=== PATIENT | male | born 1985 | race Caucasian/White ===

== ENCOUNTER 2017-07-23 06:12 | Emergency (ER) | payer SELFPAY ==
[~2017-07-23] VITALS: Ht 180.3 cm; Wt 105.0 kg
[2017-07-23 06:14] VITALS: BP 139/85; PULSE 79; RESP 18; TEMP 97.8; O2SAT 99
[2017-07-23] MEDS ORDERED: PENI500T PO (06:38)
[2017-07-23] MEDS ORDERED: MAGICPED SWISH-SWAL (06:38)
[2017-07-23] MEDS ORDERED: IBUP1TAB7 PO (06:38)
--- NOTE | 2017-07-23 06:39 | PD ---
HPI Chief Complaint: Oral / Dental Pain or Problem Time Seen by Provider: 06:31 Travel History International Travel<30 days: No Contact w/Intl Traveler<30days: No Traveled to known affect area: No History of Present Illness HPI 32-year-old male presents emergency department for evaluation of L upper tooth pain and swelling that has been worsening over the last week. Says that he has been able to follow-up with a dentist because of insurance and funding issues. Says his pain is located in the left upper premolar region and radiates just surrounding the area. His pain is mild to moderate in severity. Denies fevers or chills. Denies stiff neck, drooling, or trouble swallowing. Denies previous dental problems although says he has multiple cavities. PFSH Past Medical History Medical History: Denies Significant Hx Diminished Hearing: No Tetanus Vaccination: Unknown Influenza Vaccination: No Past Surgical History Surgical History: No Previous Surgery Social History Alcohol Use: Yes Tobacco Use: Yes (1 1/2 ppd cigarettes) Substance Use: No Allergies-Medications (Allergen,Severity, Reaction): Coded Allergies: No Known Allergies (Unverified Adverse Reaction, Unknown, 07/23/17) Reported Meds & Prescriptions Reported Meds & Active Scripts Active Magic Mouthwash Pediatric/Adult Liq (Lidocaine/Diphenhydr/Alum/Mg/Simeth) 60 Ml Susp 5 Ml SWISH-SWAL ACHS Each 5mL contains: Diphenydramine 4.5mg, Viscous Lidocaine 2% 10mg, Maalox Advanced Regular Strength 2.7ml Penicillin V Potassium 500 Mg Tab 500 Mg PO Q8H 7 Days Ibuprofen 800 Mg Tab 800 Mg PO Q8H PRN 5 Days Review of Systems Except as stated in HPI: all other systems reviewed are Neg Physical Exam Narrative GENERAL: Well-nourished, well-developed patient, in NAD SKIN: Focused skin assessment warm/dry. No rashes or lesions. edema of left maxillary without induration, TTP. HEAD: Normocephalic. Atraumatic. EYES: No scleral icterus. No injection or drainage. PERRLA, EOMI THROAT: No pharyngeal injection, exudates, or tonsillar hypertrophy. Airway is patent. Poor dentition. No fluctuance of gumline. TTP. NECK: Supple, trachea midline. No JVD or lymphadenopathy. No meningismus. CARDIOVASCULAR: Regular rate and rhythm without murmurs, gallops, or rubs. RESPIRATORY: Breath sounds equal bilaterally. No accessory muscle use. No wheezes, rales, or rhonchi MUSCULOSKELETAL: No cyanosis, or edema. BACK: Nontender without obvious deformity. No CVA tenderness. Data Data Last Documented VS Vital Signs Date Time Temp Pulse Resp B/P (MAP) Pulse Ox O2 Delivery O2 Flow Rate FiO2 07/23/17 06:14 97.8 79 18 139/85 (103) 99 Orders Orders Ed Discharge Order (07/23/17 06:39) MDM Medical Decision Making Medical Screen Exam Complete: Yes Emergency Medical Condition: Yes Differential Diagnosis Dental infection, pulpitis, abscess Narrative Course 32-year-old male presents emergency department for evaluation of L upper tooth pain and swelling that has been worsening over the last week. Says that he has been able to follow-up with a dentist because of insurance and funding issues. Says his pain is located in the left upper premolar region and radiates just surrounding the area. His pain is mild to moderate in severity. Denies fevers or chills. Denies stiff neck, drooling, or trouble swallowing. Denies previous dental problems although says he has multiple cavities. Vital signs are stable. Physical exam consistent with a dental infection. there is some edema of the cheek however, I believe this is stable and is amenable to abx. Patient will be discharged with Magic mouthwash, ibuprofen, and pen VK. I gave the patient information regarding a dentist. Patient should follow-up with his primary care physician as well. Diagnosis Primary Impression: Dental infection Referrals: [facility] Additional Instructions: Take all medications as prescribed. Use the dental information given to today to follow-up with the dentist. Scripts Qkcrogtqknlxnoi-Ffglaaycl-Aik-Alum-Simeth Liq (Magic Mouthwash Pediatric/Adult Liq) 60 Ml Susp 5 ML SWISH-SWAL ACHS for Mouth sores, #60 ML 0 Refills Each 5mL contains: Diphenydramine 4.5mg, Viscous Lidocaine 2% 10mg, Maalox Advanced Regular Strength 2.7ml Prov: Matty Araujo DO 07/23/17 Penicillin V Potassium (Penicillin V Potassium) 500 Mg Tab 500 MG PO Q8H for Infection for 7 Days, #21 TAB 0 Refills Prov: Matty Araujo DO 07/23/17 Ibuprofen (Ibuprofen) 800 Mg Tab 800 MG PO Q8H Y for Pain/Inflammation for 5 Days, #15 TAB 0 Refills Prov: Matty Araujo DO 07/23/17 Disposition: 01 DISCHARGE HOME Condition: Stable Cheri Fox July 23, 2017 06:39
== END 2017-07-23 06:58 | disposition home or self-care (01) ==
LOC: NEPD 06:12
DX: K04.7 Periapical abscess without sinus (principal); F17.210 Nicotine dependence, cigarettes, uncomplicated
CPT/HCPCS: 99283